=== PATIENT | male | born 1975 | race African-American/Black ===

== ENCOUNTER 2016-08-06 | Emergency (ER) | payer SELFPAY ==
[~2016-08-06] VITALS: Ht 180.3 cm; Wt 108.9 kg
[~2016-08-06] MED LIST: ALB0.5V; ALBU8.5H2 IH; ALBUTEROL; BUDE6HFA IH; CEPH-38 PO; CEPH500C PO; HYDR-757 PO; METH4TAB PO; PRD10T PO; PRD50T PO; SULF-222 PO; SULF1TAB35 PO
[2016-08-06] MEDS ORDERED: LIDOCAINE 1% INJ 20 ML (XYLOCAINE) VIAL INJ ONE (02:00)
--- NOTE | 2016-08-06 02:32 | ED General ---
General Chief Complaint: Skin/Wound Problems Stated Complaint: LEG IRRATION Nursing Triage Note: AREA OF CONCERN TO RIGHT INNER THIGH. NOTICED 08/05/16 AM Nursing Sepsis Screen: No Definite Risk Source of Information: Patient Exam Limitations: No Limitations History of Present Illness Time Seen by Provider: 01:43 Initial Comments Patient has a area of swelling and purulent drainage in the right perineal area. 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 He denies fever. Abscess has been present for a couple of days. Allergies and Home Medications Allergies Coded Allergies: NKANo Known Allergies (Verified Allergy, Mild, 12/04/14) Home Medications Albuterol 8.5 Gm Hfa.aer.ad #0 1 PUFF IH RTQ4HR PRN PRN SHORTNESS OF BREATH 1 PUFFS Prescribed by: EDMUNDO YUEN on 12/04/14 1524 Budesonide/Formoterol Fumarate 10.2 Gm Hfa.aer.ad 2 PUFF IH BID (Reported) Sulfamethoxazole/Trimethoprim 1 Each Tablet #20 1 EACH PO BID Prescribed by: JOSE UMAÑA on 08/06/16 0235 Constitutional: no symptoms reported Skin: see HPI Past Pwyaugy-Idctke-Dbmnsw Hx Patient Social History Alcohol Use: Rarely Uses Recreational Drug Use: No Smoking Status: Never a Smoker 2nd Hand Smoke Exposure: No Recent Foreign Travel: No Contact w/Someone Who Travel: No Recent Infectious Disease Expo: No Recent Hopitalizations: No Immunizations Up To Date Tetanus Booster (TDap): Less than 5yrs Seasonal Allergies Seasonal Allergies: No Surgeries HX Surgeries: No Respiratory Hx Respiratory Disorders: Yes Respiratory Disorders: Asthma Cardiovascular Hx Cardiac Disorders: No Neurological Hx Neurological Disorders: No Reproductive System Hx Reproductive Disorders: No Genitourinary Hx Genitourinary Disorders: No Gastrointestinal Hx Gastrointestinal Disorders: No Musculoskeletal Hx Musculoskeletal Disorders: No Endocrine Hx Endocrine Disorders: No HEENT HX ENT Disorders: No Cancer Hx Cancer: No Psychosocial Hx Psychiatric Problems: No Integumentary HX Skin/Integumentary Disorder: Yes (history of MRSA abscesses) Skin/Integumentary Disorders: Recent Skin Changes Blood Transfusions Hx Blood Disorders: No Adverse Reaction to a Blood Tr: No Family Medical History Significant Family History: No Pertinent Family Hx Family Medial History: Asthma Physical Exam Vital Signs Vital Sign - Last 12Hours 08/06/16 00:33 Temp 98.8 Pulse 90 Resp 16 B/P 179/76 Pulse Ox 97 O2 Delivery Room Air Capillary Refill : Less Than 3 Seconds General Appearance: No Apparent Distress WD/WN Respiratory: Lungs Clear Normal Breath Sounds Cardiovascular: Regular Rate, Rhythm No Edema Normal Peripheral Pulses Skin: Normal Color Warm/Dry Other (area of induration about 1.5 x 3 cm in the right perineal region with a central draining pore.) I&D : Blade Size: 11 Progress Chlorhexidine was used to clean the skin. About one mL of lidocaine was injected to anesthetize the skin. A small incision less than 1 cm was placed over the center of the affected area near the pore. A scant amount of purulent drainage was expressed. Progress/Results/Core Measures Results/Orders My Orders Orders-JOSE JACOME MD Lidocaine 1% Injection (Xylocaine 1% Inj (08/06/16 02:00) Sulfamethoxazole/Trimet Ds Tab (Bactrim (08/06/16 02:45) Medications Given in ED Current Medications Medications Dose Ordered Sig/Alexi Route Start Time Stop Time Status Last Admin Dose Admin Trimethoprim/ Sulfamethoxazole 1 ea ONCE ONCE PO 08/06/16 02:45 08/06/16 02:45 DC 08/06/16 02:34 1 EA Vital Signs/I&O Vital Sign - Last 12Hours 08/06/16 08/06/16 08/06/16 00:33 01:56 02:46 Temp 98.8 98.8 98.0 Pulse 90 83 Resp 16 16 B/P 179/76 Pulse Ox 97 97 O2 Delivery Room Air Blood Pressure Mean: 110 Progress Note : Progress Note A dose of Bactrim DS was administered prior to dismissal. Departure Impression Impression: Primary Impression: Perineal abscess, superficial Additional Impression: Encounter for incision and drainage procedure Disposition: 01 HOME, SELF-CARE Condition: Improved Departure-Patient Inst. Decision time for Depature: 02:34 Referrals: [facility] (PCP/Family) Primary Care Physician Patient Instructions: Abscess Incision and Drainage (DC) Add. Discharge Instructions: You may soak in a bathtub for about 15 minutes 2 or 3 times a day to encourage drainage. Complete your antibiotics as prescribed. Return to care if symptoms worsen. All discharge instructions reviewed with patient and/or family. Voiced understanding. Scripts Sulfamethoxazole/Trimethoprim (Bactrim Ds Tablet)1 Each Tablet1 Each PO BID #20 TAB Prov:JOSE JACOME MD 08/06/16 Work/School Note: Work Release Form Date Seen in the Emergency Department: Aug 06, 2016 Return to Work: Aug 07, 2016 Restrictions: No Restrictions JOSE JACOME MD Aug 06, 2016 02:32
[2016-08-06] MEDS ORDERED: SULF1TAB35 PO (02:35)
[2016-08-06] MEDS ORDERED: TRIM/SULFAMETH 160/800 (SEPTRA DS) TAB PO ONE (02:45)
[2016-08-06 02:46] VITALS: BP 137/94
== END 2016-08-06 02:42 | disposition home or self-care (01) ==
LOC: EDUNIT# → ER 00:04
DX: L02.215 Cutaneous abscess of perineum (principal); Z86.14 Personal history of Methicillin resistant Staphylococcus aureus infection
CPT/HCPCS: 10060

== ENCOUNTER 2016-11-27 06:16 | Emergency (ER) | payer SELFPAY ==
[~2016-11-27] VITALS: Ht 180.3 cm; Wt 104.3 kg
[2016-11-27] MEDS ORDERED: ASPIRIN 81 MG CHEW (CHILDREN'S ASA) PO ONE (06:45)
--- NOTE | 2016-11-27 06:56 | Diagnostic Imaging Report ---
CHEST PA/LAT (2 VIEW) Indication: Left-sided chest pain. Comparison: 08/19/2008 Findings: No focal pneumonic consolidation, pleural effusion or pneumothorax. Normal heart size and pulmonary vasculature. No displaced rib fractures. Impression: No acute cardiopulmonary process. Dictated by: Dictated on workstation # [id number]
[2016-11-27 06:57] LABS: BASOPHILS % (AUTO) 0 % (0-10); EOSINOPHILS # (AUTO) 0.4 10^3/uL (0.0-0.3); EOSINOPHILS % (AUTO) 6 % (0-10); LYMPHOCYTES # (AUTO) 2.7 X 10^3 (1.0-4.0); LYMPHOCYTES % (AUTO) 47 % (12-44); MEAN CORPUSCULAR HEMOGLOBIN 30 PG (25-34); MEAN CORPUSCULAR HGB CONC 33 G/DL (32-36); MEAN CORPUSCULAR VOLUME 89 FL (80-99); MEAN PLATELET VOLUME 10.3 FL (7.4-10.4); MONOCYTES # (AUTO) 0.6 X 10^3 (0.0-1.0); MONOCYTES % (AUTO) 10 % (0-12); NEUTROPHILS # (AUTO) 2.2 X 10^3 (1.8-7.8); NEUTROPHILS % (AUTO) 37 % (42-75); PLATELET COUNT 238 10^3/uL (130-400); RED BLOOD COUNT 5.16 10^6/uL (4.35-5.85); RED CELL DISTRIBUTION WIDTH 14.1 % (10.0-14.5); WHITE BLOOD COUNT 5.8 10^3/uL (4.3-11.0)
--- NOTE | 2016-11-27 06:59 | ED Chest Pain ---
General Chief Complaint: Chest Wall/Rib Pain Stated Complaint: CP,SHAKING Nursing Triage Note: C/O SHARP INTERMITTANT CHEST PAIN SINCE 329. Nursing Sepsis Screen: No Definite Risk Source: patient Exam Limitations: no limitations History of Present Illness Time seen by provider: 06:27 Initial Comments This 41-year-old gentleman presents to the emergency room with complaints of sharp left upper chest pain radiating to the left upper back that started around 05:00. He reports increased stress recently and decreased food intake. He is drinking well. He reports feeling weak and shaky this morning. His chest pain resolved by the time of presentation. 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 He reports pain is worse with activity and better with rest. He thinks it may sometimes get worse with deep breathing. He has been having chest pain intermittently for about 4 years. He has on average one episode every few months. Episodes last up to 30 minutes at a time. His only associated symptom is headache. He has a history of asthma for which he takes Symbicort. He has no history of tobacco use. He has strong family history of heart disease. His father began having heart problems before the age of 50. His brother of an ill-defined cardiac problem. Patient reports his brother had "fluid on the heart". Fingerstick blood sugar was 113. His primary care provider is Ananda Grimm at [facility]. Allergies and Home Medications Allergies Coded Allergies: NKANo Known Allergies (Verified Allergy, Mild, 12/04/14) Home Medications Albuterol 8.5 Gm Hfa.aer.ad, 1 PUFF IH RTQ4HR PRN for SHORTNESS OF BREATH, #0 1 PUFFS Prescribed by: EDMUNDO YUEN on 12/04/14 1524 Budesonide/Formoterol Fumarate 10.2 Gm Hfa.aer.ad, 2 PUFF IH BID, Ref 0 ( Reported) Sulfamethoxazole/Trimethoprim 1 Each Tablet, 1 EACH PO BID, #20 Prescribed by: JOSE UMAÑA on 08/06/16 0235 Review of Systems Constitutional: no symptoms reported EENTM: No Symptoms Reported Respiratory: See HPI Cardiovascular: See HPI Gastrointestinal: No Symptoms Reported Genitourinary: No Symptoms Reported Musculoskeletal: no symptoms reported Skin: no symptoms reported Psychiatric/Neurological: No Symptoms Reported Endocrine: No Symptoms Reported Past Sqbvfdu-Oitfcs-Oirgml Hx Patient Social History Alcohol Use: Denies Use Recreational Drug Use: No Smoking Status: Never a Smoker 2nd Hand Smoke Exposure: No Recent Foreign Travel: No Contact w/Someone Who Travel: No Recent Infectious Disease Expo: No Recent Hopitalizations: No Immunizations Up To Date Tetanus Booster (TDap): Less than 5yrs Seasonal Allergies Seasonal Allergies: No Surgeries HX Surgeries: No Respiratory Hx Respiratory Disorders: Yes Respiratory Disorders: Asthma Cardiovascular Hx Cardiac Disorders: No Neurological Hx Neurological Disorders: No Reproductive System Hx Reproductive Disorders: No Genitourinary Hx Genitourinary Disorders: No Gastrointestinal Hx Gastrointestinal Disorders: No Musculoskeletal Hx Musculoskeletal Disorders: No Endocrine Hx Endocrine Disorders: No HEENT HX ENT Disorders: No Cancer Hx Cancer: No Psychosocial Hx Psychiatric Problems: No Integumentary HX Skin/Integumentary Disorder: Yes (history of MRSA abscesses) Skin/Integumentary Disorders: Recent Skin Changes Blood Transfusions Hx Blood Disorders: No Adverse Reaction to a Blood Tr: No Family Medical History Significant Family History: No Pertinent Family Hx Family Medial History: Asthma Physical Exam Vital Signs Vital Sign - Last 12Hours 11/27/16 11/27/16 06:29 06:48 Temp 97.9 Pulse 75 Resp 16 B/P (MAP) 140/100 Pulse Ox 96 O2 Delivery Room Air O2 Flow Rate 2.00 Capillary Refill : Less Than 3 Seconds General Appearance: No Apparent Distress, WD/WN HEENT: PERRL/EOMI, Normal ENT Inspection Neck: Normal Inspection Respiratory: Chest Non Tender, Lungs Clear, Normal Breath Sounds, No Accessory Muscle Use, No Respiratory Distress Cardiovascular: Regular Rate, Rhythm, No Edema, No Murmur, Normal Peripheral Pulses Gastrointestinal: Non Tender, Soft Extremity: Normal Inspection, Non Tender, No Calf Tenderness, No Pedal Edema Neurologic/Psychiatric: Alert, Oriented x3, No Motor/Sensory Deficits, Normal Mood/Affect, intelligence engineer II-XII Norm as Tested Skin: Normal Color, Warm/Dry Progress/Results/Core Measures Results/Orders Lab Results Laboratory Tests Test 11/27/16 06:31 11/27/16 06:45 Range/Units Glucometer 113 H 70-110 MG/DL White Blood Count 5.8 4.3-11.0 10^3/uL Red Blood Count 5.16 4.35-5.85 10^6/uL Hemoglobin 15.3 13.3-17.7 G/DL Hematocrit 46 40-54 % Mean Corpuscular Volume 89 80-99 FL Mean Corpuscular Hemoglobin 30 25-34 PG Mean Corpuscular Hemoglobin Concent 33 32-36 G/DL Red Cell Distribution Width 14.1 10.0-14.5 % Platelet Count 238 130-400 10^3/uL Mean Platelet Volume 10.3 7.4-10.4 FL Neutrophils (%) (Auto) 37 L 42-75 % Lymphocytes (%) (Auto) 47 H 12-44 % Monocytes (%) (Auto) 10 0-12 % Eosinophils (%) (Auto) 6 0-10 % Basophils (%) (Auto) 0 0-10 % Neutrophils # (Auto) 2.2 1.8-7.8 X 10^3 Lymphocytes # (Auto) 2.7 1.0-4.0 X 10^3 Monocytes # (Auto) 0.6 0.0-1.0 X 10^3 Eosinophils # (Auto) 0.4 H 0.0-0.3 10^3/uL Basophils # (Auto) 0.0 0.0-0.1 10^3/uL Prothrombin Time 12.4 12.2-14.7 SEC INR Comment 1.0 0.8-1.4 Activated Partial Thromboplast Time 31 24-35 SEC Sodium Level 140 135-145 MMOL/L Potassium Level 3.7 3.6-5.0 MMOL/L Chloride Level 104 98-107 MMOL/L Carbon Dioxide Level 25 21-32 MMOL/L Anion Gap 11 5-14 MMOL/L Blood Urea Nitrogen 12 7-18 MG/DL Creatinine 1.28 0.60-1.30 MG/DL Estimat Glomerular Filtration Rate > 60 BUN/Creatinine Ratio 9 Glucose Level 106 H 70-105 MG/DL Calcium Level 9.8 8.5-10.1 MG/DL Magnesium Level 2.3 1.8-2.4 MG/DL Total Bilirubin 1.0 0.1-1.0 MG/DL Aspartate Amino Transf (AST/SGOT) 26 5-34 U/L Alanine Aminotransferase (ALT/SGPT) 41 0-55 U/L Alkaline Phosphatase 64 40-136 U/L Myoglobin 57.7 10.0-92.0 NG/ML Troponin I < 0.30 <0.30 NG/ML Total Protein 7.7 6.4-8.2 G/DL Albumin 4.5 3.2-4.5 G/DL My Orders Orders - JOSE JACOME MD Cbc With Automated Diff (11/27/16 06:37) Magnesium (11/27/16 06:37) Ekg Tracing (11/27/16 06:37) Cardiac Profile 1 (11/27/16 06:37) Comprehensive Metabolic Panel (11/27/16 06:37) Myoglobin Serum (11/27/16 06:37) Protime With Inr (11/27/16 06:37) Partial Thromboplastin Time (11/27/16 06:37) O2 (11/27/16 06:37) Monitor-Rhythm Ecg Trace Only (11/27/16 06:37) Lipid Panel (11/28/16 06:00) Aspirin Chewable Tablet (Baby Aspirin Ch (11/27/16 06:45) Saline Lock/Iv-Start (11/27/16 06:37) Chest Pa/Lat (2 View) (11/27/16 06:37) Medications Given in ED Current Medications Medications Dose Ordered Sig/Alexi Route Start Time Stop Time Status Last Admin Dose Admin Aspirin 324 mg ONCE ONCE PO 11/27/16 06:45 11/27/16 06:46 DC 11/27/16 06:42 324 MG Vital Signs/I&O Vital Sign - Last 12Hours 11/27/16 11/27/16 06:29 06:48 Temp 97.9 Pulse 75 Resp 16 B/P (MAP) 140/100 Pulse Ox 96 96 O2 Delivery Room Air Nasal Cannula O2 Flow Rate 2.00 Blood Pressure Mean: 113 Point of Care Testing Finger Stick Blood Glucose: 113 Blood Glucose Action Taken: DR. JACOME NOTIFIED Progress Note : Progress Note Workup was unremarkable today. It was noted that he had a lymphocytic shift to his WBC. Patient had no further chest pain while he was in the ER. However, I have concerns about his strong family history with early cardiac related in his brother and heart disease in his father before age 50. I discussed the case with Dr. Dupont. He would like to see him in the clinic today to discuss further testing. An appointment was scheduled at 10:00. Patient was given president financial institution papers at discharge. ECG Initial ECG Impression Date: Nov 27, 2016 Initial ECG Impression Time: 06:49 Initial ECG Rate: 71 Initial ECG Rhythm: Normal Sinus Initial ECG Intervals: Normal Initial ECG Impression: Normal Comment Normal sinus rhythm with no ST elevation or depression. No abnormal intervals or axis deviation. Diagnostic Imaging Diagonstic Imaging: Xray Plain Films/CT/US/NM/MRI: chest Comments Chest x-ray viewed by me and report reviewed. See report below: NAME: JANELLE EARL [facility] REC#: [id number] PT STATUS: REG ER : 1975 PHYSICIAN: JOSE JACOME MD ADMIT DATE: 11/27/16/ER Signed Date of Exam: 11/27/16 CHEST PA/LAT (2 VIEW) CHEST PA/LAT (2 VIEW) Indication: Left-sided chest pain. Comparison: 08/19/2008 Findings: No focal pneumonic consolidation, pleural effusion or pneumothorax. Normal heart size and pulmonary vasculature. No displaced rib fractures. Impression: No acute cardiopulmonary process. Dictated by: Dictated on workstation # [id number] Dict: 11/27/1653 Trans: 11/27/1654 Interpreted by: SANDRA MARROQUIN MD Electronically signed by: SANDRA MARROQUIN MD 11/27/1654 Departure Impression Impression: Primary Impression: Chest pain Qualified Codes: R07.9 - Chest pain, unspecified Additional Impressions: Family history of heart disease Stress Disposition: 01 HOME, SELF-CARE Condition: Improved Departure-Patient Inst. Decision time for Depature: 07:45 Referrals: [facility] (PCP/Family) Primary Care Physician NIR DUPONT MD Patient Instructions: Chest Pain (DC) Add. Discharge Instructions: You have an appointment at Dr. Dupont's office at 9:45 o'clock this morning. Please bring your medications and any other health information you may have. You will likely be asked to provide a $50 co-pay if possible at the time of the appointment. Please contact his office and discuss if you are unable to provide the co-pay. Call and cancel if you're unable to make the appointment. Return to the emergency room if you have worsening symptoms. Take aspirin 81 mg daily until your able to see Dr. Dupont. All discharge instructions reviewed with patient and/or family. Voiced understanding. Work/School Note: Work Release Form Date Seen in the Emergency Department: Nov 27, 2016 Return to Work: Nov 28, 2016 Restrictions: No Restrictions Other Restrictions Listed Below: Restrictions may be placed by wind technician. Copy Copies To 1: BETO MCDANIEL MD Copies To 2: NIR DUPONT MD, JOSHUA T MD Nov 27, 2016 06:58
[2016-11-27 07:13] LABS: PROTHROMBIN TIME PATIENT 12.4 SEC (12.2-14.7)
[2016-11-27 07:24] LABS: ALANINE AMINOTRANSFERASE 41 U/L (0-55); ALBUMIN 4.5 G/DL (3.2-4.5); ANION GAP 11 MMOL/L (5-14); ASPARTATE AMINO TRANSFERASE 26 U/L (5-34); BLOOD UREA NITROGEN 12 MG/DL (7-18); BUN/CREATININE RATIO 9; CALCIUM 9.8 MG/DL (8.5-10.1); CARBON DIOXIDE 25 MMOL/L (21-32); CHLORIDE 104 MMOL/L (98-107); CREATININE SERUM 1.28 MG/DL (0.60-1.30); GFR ESTIMATED > 60; GLUCOSE 106 MG/DL (70-105); MAGNESIUM 2.3 MG/DL (1.8-2.4); POTASSIUM 3.7 MMOL/L (3.6-5.0); SODIUM 140 MMOL/L (135-145); TOTAL PROTEIN 7.7 G/DL (6.4-8.2)
[2016-11-27 07:31] LABS: MYOGLOBIN SERUM 57.7 NG/ML (10.0-92.0)
[2016-11-27 08:10] VITALS: BP 135/82
== END 2016-11-27 08:10 | disposition home or self-care (01) ==
LOC: EDUNIT# 06:16 → ER 06:21
DX: R07.89 Other chest pain (principal); F43.9 Reaction to severe stress, unspecified; J45.909 Unspecified asthma, uncomplicated; Z82.49 Family history of ischemic heart disease and other diseases of the circulatory system
CPT/HCPCS: 36415; 71020; 80053; 82962; 83735; 83874; 84484; 85025; 85610; 85730; 93005; 93041

== ENCOUNTER → 2016-11-27 | Outpatient (CLI) | payer OTHER ==
--- NOTE | 2016-11-29 08:45 | STRESS TEST ---
DATE OF SERVICE: 11/27/2016 EXERCISE STRESS ECHOCARDIOGRAM REFERRING PHYSICIAN: Dr. Montaño, [facility] PROCEDURE: Baseline heart rate is 58, baseline blood pressure 144/67. Baseline EKG is sinus rhythm with no ischemic changes. SUMMARY: The patient started exercising with a baseline heart rate, blood pressure and EKG mentioned above. He was able to exercise for a total of 9 minutes on standard Jaiden protocol, achieving maximum heart rate of 169 which is 90% of his maximum expected heart rate. With peak exercise level, blood pressure was 210/68. EKG was showing no ischemic changes. During recovery, heart rate and blood pressure returned to baseline. EKG returned to baseline. Echocardiographic images were acquired and reviewed in the parasternal short axis, parasternal long axis, apical four chamber and apical two chamber views reveal the images showed normal left ventricular size with normal contractility, with no ischemic changes. CONCLUSION: 1. Excellent exercise tolerance, a total of 9 minutes of standard Jaiden protocol, total of 10.1 METS achieving 90% of maximum expected heart rate. 2. Severe hypertensive response to exercise, return to baseline during recovery. 3. No ischemic changes on EKG. 4. Normal echocardiographic images at rest and with peak stress level with no ischemic changes. Job ID: [id number] DocumentID: [id number] Dictated Date: 11/27/2016 16:22:30 Diamond Sander Date: 11/27/2016 18:56:11 Dictated By: NIR WOLF MD
== END ==
LOC: CARD 11:41
PROVIDERS: ATTEND Internal Medicine Cardiovascular Disease
DX: J45.909 Unspecified asthma, uncomplicated (principal); R07.9 Chest pain, unspecified; Z82.49 Family history of ischemic heart disease and other diseases of the circulatory system
CPT/HCPCS: 93351